=== PATIENT | female | born 1990 | race Caucasian/White ===

== ENCOUNTER 2017-05-15 15:22 | Emergency (ER) | payer SELFPAY ==
[~2017-05-15] VITALS: Ht 160 cm; Wt 100.0 kg
[2017-05-15 15:25] VITALS: BP 134/66; PULSE 87; RESP 16; TEMP 98.2; O2SAT 98
[2017-05-15 16:40] LABS: BLOOD, URINE NEG (NEG); COMMENT (UR) CULTURE INDICATED; CULTURE IF INDICATED CULTURE INDICATED; GLUCOSE,URINE NEG (NEG); KETONE, URINE NEG (NEG); MUCUS URINE FEW /lpf (OCC); NITRITE,URINE NEG (NEG); PH, URINE 6.5 (5.0-8.5); SQUAMOUS EPITHELIAL CELL URINE 3 /hpf (0-5); URINE COLOR YELLOW (YELLW/STRAW)
[2017-05-15] MEDS ORDERED: SULFAMETHOXAZOLE-TRIMETHOPRIM DS 800-160 MG TAB PO ONE (19:15)
--- NOTE | 2017-05-15 19:16 | PD ---
HPI Chief Complaint: Complaint Time Seen by Provider: 19:11 Travel History International Travel<30 days: No Contact w/Intl Traveler<30days: No Traveled to known affect area: No History of Present Illness HPI Patient comes and complaining of possible UTI ongoing 3-4 days. Patient reports dysuria, frequency, urgency, and awoke today with low back pain. Patient denies any known fevers, nausea, vomiting, vaginal discharge, abdominal pain, shortness breath, or chest pain. Patient reports symptoms are similar to previous UTI. Patient denies doing anything for this. Denies anything making it better. Feels it has progressively got worse. Denies any radiation of the pain. 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 SKIN: Focused skin assessment warm and dry. HEAD: Atraumatic. Normocephalic. EYES: Pupils equal and round. EOMI. No scleral icterus. No injection or drainage. ENT: No nasal bleeding or discharge. Mucous membranes pink and moist. NECK: Trachea midline. Supple. No nuclear rigidity. CARDIOVASCULAR: Regular rate and rhythm. No murmur appreciated. RESPIRATORY: No accessory muscle use. No respiratory distress. GASTROINTESTINAL: Abdomen soft, non-tender, nondistended, and no guarding. Hepatic and splenic margins not palpable. Normal bowel sounds 4. No pulsatile mass. No CVA tenderness. MUSCULOSKELETAL: No obvious deformities. No clubbing. No cyanosis. No edema. Full range of motion. NEUROLOGICAL: Awake and alert. No obvious cranial nerve deficits. Motor grossly within normal limits. Normal speech. PSYCHIATRIC: Appropriate mood and affect; insight and judgment normal. Data Data Last Documented VS Vital Signs Date Time Temp Pulse Resp B/P Pulse Ox O2 Delivery O2 Flow Rate FiO2 05/15/17 19:33 98.5 72 16 141/77 97 Orders Urinalysis - C+S If Indicated (05/15/17 16:00) Ed Urine Pregnancytest Poc (05/15/17 16:12) Urine Culture (05/15/17 16:00) Sulfamet-Trimeth Ds 800-160 Mg (Bactrim (05/15/17 19:15) Labs Laboratory Tests Test 05/15/17 16:00 Urine Color YELLOW Urine Turbidity HAZY Urine pH 6.5 Urine Specific [place] 1.017 Urine Protein NEG mg/dL Urine Glucose (UA) NEG mg/dL Urine Ketones NEG mg/dL Urine Occult Blood NEG Urine Nitrite NEG Urine Bilirubin NEG Urine Urobilinogen LESS THAN 2.0 MG/DL Urine Leukocyte Esterase LARGE Urine WBC 36 /hpf Urine Squamous Epithelial 3 /hpf Cells Urine Mucus FEW /lpf Microscopic Urinalysis Comment CULTURE INDICATED MDM Medical Decision Making Medical Screen Exam Complete: Yes Emergency Medical Condition: Yes Differential Diagnosis UTI, , pyelonephritis, renal calculi, other Narrative Course The patient presentation with history and evaluation are consistent with UTI. There is no evidence of pyelonephritis. The patient is tolerating fluids, no fever. There is no clinical evidence to suggest atypical cervicitis, PID, appendicitis. The patient was discharged on antibiotics and given warnings to return if condition worsens in any way, fever, vomiting and unable to tolerate medications or fluids, back pain or as needed. The patient was instructed to follow up with their physician. The patient agrees with plan of care. Patient in no obvious distress upon re-evaluation. All pertinent laboratory result(s) discussed with patient. Patient was asked if they wanted to speak to my attending, which the patient did not wish to do at this time. Any questions/ concerns in reference to patient diagnosis/condition discussed and clarified prior to patient's discharge. Reinforced sheer importance of close follow up with patient's primary physician or primary care clinic. Instructed patient to return to ED immediately, if symptoms return/worsen. Pt showed understanding of above instructions. Further instructions and recommendations were detailed in discharge paperwork. Pt left without difficulty out of ED at discharge. Diagnosis Primary Impression: UTI (urinary tract infection) Qualified Code: N30.00 - Acute cystitis without hematuria Referrals: [facility]. [facility] Patient Instructions: General Instructions, Urinary Tract Infection in Women ( [place]) Additional Instructions: Follow-up with your primary care physician next week for reevaluation. Take all medication as prescribed. Return to the emergency department if symptoms get worse. Med/Other Pt SpecificInfo: Prescription(s) given Scripts Sulfamethoxazole-Trimethoprim (Bactrim DS)800-160 Mg Tab1 Tab PO BID #20 TAB Ref 0 Prov:Natasha Uriostegui 05/15/17 Disposition: 01 DISCHARGE HOME Condition: Stable Flaco Lopes May 15, 2017 19:16
[2017-05-15] MEDS ORDERED: BACT800T5 PO (19:17)
[2017-05-15 19:33] VITALS: BP 141/77; TEMP 98.5
== END 2017-05-15 19:49 | disposition home or self-care (01) ==
LOC: NEPD 15:22
DX: N30.00 Acute cystitis without hematuria (principal); Z87.440 Personal history of urinary (tract) infections
CPT/HCPCS: 81001; 84703; 87086; 99283

== ENCOUNTER 2017-06-01 00:16 | Emergency (ER) | payer SELFPAY ==
[~2017-06-01] VITALS: Ht 160 cm; Wt 100.0 kg
[~2017-06-01 00:16] MED LIST: BACT800T5 PO
[2017-06-01 00:21] VITALS: BP 117/72; PULSE 88; RESP 16; TEMP 98.7; O2SAT 98
[2017-06-01] MEDS ORDERED: CIPR750T2 PO (01:43)
[2017-06-01] MEDS ORDERED: PHEN0.4T PO (01:44)
--- NOTE | 2017-06-01 01:44 | PD ---
HPI Chief Complaint: Abdominal Pain Time Seen by Provider: 01:24 Travel History International Travel<30 days: No Contact w/Intl Traveler<30days: No Traveled to known affect area: No History of Present Illness HPI 27-year-old female here with complaint of dysuria. Patient has approximately 3 weeks of dysuria, foul-smelling urine and urinary frequency. Seen here recently in our ER and given prescription for Bactrim which she took without improvement. She presents again. She notes some slight low back discomfort, but no flank pain, nausea vomiting, fevers or chills. Denies abnormal vaginal discharge. PFSH Past Medical History : 5 Para: 3 Miscarriage: 2 Past Surgical History Section: Yes (2) Tonsillectomy: Yes Social History Alcohol Use: No Tobacco Use: Yes (1/2 PPD) Substance Use: Yes (2 1/2 MONTHS AGO S/P METH ) Allergies-Medications (Allergen,Severity, Reaction): Coded Allergies: Ceclor (Verified Allergy, Unknown, 05/15/17) Reported Meds & Prescriptions Reported Meds & Active Scripts Active Pyridium (Phenazopyridine HCl) 100 Mg Tab 100 Mg PO Q8H PRN Ciprofloxacin (Ciprofloxacin HCl) 750 Mg Tab 750 Mg PO BID 7 Days Bactrim DS (Sulfamethoxazole-Trimethoprim) 800-160 Mg Tab 1 Tab PO BID Review of Systems Except as stated in HPI: all other systems reviewed are Neg Physical Exam Narrative GENERAL: Obese female playing games on her telephone, will not stop to speak with me or examine SKIN: Focused skin assessment warm/dry. HEAD:Normocephalic. EYES:No scleral icterus. No injection or drainage. ENT: Mucous membranes pink and moist. NECK: Supple CARDIOVASCULAR: Regular rate and rhythm. RESPIRATORY: No accessory muscle use. GASTROINTESTINAL: Abdomen soft, morbidly obese. Mild suprapubic discomfort MUSCULOSKELETAL: Normal gait NEUROLOGICAL: Awake and alert. Normal speech. PSYCHIATRIC: Appropriate mood and affect; insight and judgment normal. Data Data Last Documented VS Vital Signs Date Time Temp Pulse Resp B/P Pulse Ox O2 Delivery O2 Flow Rate FiO2 06/01/17 00:21 98.7 88 16 117/72 98 Room Air Orders Urinalysis - C+S If Indicated (06/01/17 01:42) Urine Culture (06/01/17 01:50) Labs Laboratory Tests Test 06/01/17 01:50 Urine Color YELLOW Urine Turbidity CLOUDY Urine pH 6.0 Urine Specific [place] 1.015 Urine Protein TRACE mg/dL Urine Glucose (UA) NEG mg/dL Urine Ketones NEG mg/dL Urine Occult Blood SMALL Urine Nitrite NEG Urine Bilirubin NEG Urine Urobilinogen LESS THAN 2.0 MG/DL Urine Leukocyte Esterase LARGE Urine RBC 2 /hpf Urine WBC 96 /hpf Urine Squamous Epithelial 2 /hpf Cells Urine Amorphous Sediment RARE Urine Bacteria MANY /hpf Urine Mucus FEW /lpf Microscopic Urinalysis Comment CULTURE INDICATED MDM Medical Decision Making Medical Screen Exam Complete: Yes Emergency Medical Condition: Yes Medical Record Reviewed: Yes Differential Diagnosis 27-year-old female here with 3 weeks of dysuria, urgency, frequency and foul- smelling urine. Symptoms consistent with cystitis, differential includes pyelonephritis. Narrative Course Urinalysis was obtained and notable for large leukocyte esterase with white cells and bacteria. Her urine culture from previous was mixed amarilys. She was treated with Bactrim, we'll change to Cipro. Patient wants something from the free list that she is not able to financially afford any other antibiotics. Diagnosis Primary Impression: UTI (urinary tract infection) Qualified Code: N30.00 - Acute cystitis without hematuria Referrals: [facility] call for appointment Additional Instructions: Antibiotics as prescribed. The antibiotics or free at [facility]. Peridium as needed for pain. This medication will turn the urine orange. Med/Other Pt SpecificInfo: Prescription(s) given Scripts Phenazopyridine (Pyridium)100 Mg [id number] Mg PO Q8H PRN (DYSURIA) #6 TAB Ref 0 Prov:Sherlyn Higgins MD 06/01/17 Ciprofloxacin 750 Mg [id number] Mg PO BID 7 Days Ref 0 Prov:Sherlyn Higgins MD 06/01/17 Disposition: DISCHARGE HOME Condition: Stable Sherlyn Higgins MD Jun 01, 2017 01:44
[2017-06-01 02:04] LABS: BACTERIA, URINE MANY /hpf; BLOOD, URINE SMALL (NEG); COMMENT (UR) CULTURE INDICATED; CULTURE IF INDICATED CULTURE INDICATED; GLUCOSE,URINE NEG (NEG); KETONE, URINE NEG (NEG); MUCUS URINE FEW /lpf (OCC); NITRITE,URINE NEG (NEG); SQUAMOUS EPITHELIAL CELL URINE 2 /hpf (0-5); URINE COLOR YELLOW (YELLW/STRAW)
[2017-06-01] MEDS ORDERED: CIPROFLOXACIN 750 MG TAB PO ONE (02:45)
== END 2017-06-01 02:51 | disposition home or self-care (01) ==
LOC: NEPE 00:16
DX: N39.0 Urinary tract infection, site not specified (principal); F17.200 Nicotine dependence, unspecified, uncomplicated; Z79.899 Other long term (current) drug therapy
CPT/HCPCS: 81001; 87086; 99284